=== PATIENT | male | born 1975 | race Caucasian/White ===

== ENCOUNTER 2017-01-06 22:24 | Emergency (ER) | payer SELFPAY ==
[~2017-01-06] VITALS: Ht 190.5 cm; Wt 90.5 kg
[2017-01-06 22:25] VITALS: BP 120/79; PULSE 95; RESP 16; TEMP 98.5; O2SAT 99
[2017-01-06] MEDS ORDERED: ACETAMINOPHEN 500 MG CPLT PO ONE (23:30)
[2017-01-06] MEDS ORDERED: ONDANSETRON HCL 4 MG/2 ML VIAL IV PUSH ONE (23:30)
--- NOTE | 2017-01-06 23:51 | RADRPT ---
EXAM DATE/TIME: 01/06/2017 23:30 [place] COMPARISON: No previous studies available for comparison. INDICATIONS : Right flank pain. ORAL CONTRAST: No oral contrast ingested. RADIATION DOSE: 7.22 CTDIvol (mGy) MEDICAL HISTORY : Renal calculi. SURGICAL HISTORY : Discectomy, lumbar. ENCOUNTER: Initial ACUITY: 1 day PAIN SCALE: 5/10 LOCATION: Right flank TECHNIQUE: Volumetric scanning of the abdomen and pelvis was performed. Using automated exposure control and ad justment of the mA and/or kV according to patient size, radiation dose was kept as low as reasonably achievable to obtain optimal diagnostic quality images. DICOM format image data is available electro nically for review and comparison. FINDINGS: LOWER LUNGS: The visualized lower lungs are clear. LIVER: Homogeneous density without lesion. There is no dilation of the biliary tree. No calcified gallston es. SPLEEN: Normal size without lesion. PANCREAS: Within normal limits. KIDNEYS: Normal in size and shape. There is no mass, stone, or hydronephrosis. ADRENAL GLANDS: Within normal limits. VASCULAR: There is no aortic aneurysm. BOWEL/MESENTERY: The stomach, small bowel, and colon demonstrate no acute abnormality. There is no free intraperitone al air or fluid. 6 mm fecalith seen in the appendix close to the tip but no wall thickening or inflam matory changes are demonstrated. ABDOMINAL WALL: Within normal limits. RETROPERITONEUM: There is no lymphadenopathy. BLADDER: No wall thickening or mass. REPRODUCTIVE: Within normal limits. INGUINAL: There is no lymphadenopathy or hernia. MUSCULOSKELETAL: Severe disc space narrowing with vacuum phenomena seen at L5/S1. There is moderate disc space narrowi ng at L3/L4 and L4/L5. CONCLUSION: No acute abnormality demonstrated. Marcell Lopez MD on January 06, 2017 at 23:47 Board Certified Radiologist. This report was verified electronically.
--- NOTE | 2017-01-06 23:56 | PD ---
HPI Chief Complaint: Flank/Kidney Pain Time Seen by Provider: 23:18 Travel History International Travel<30 days: No Contact w/Intl Traveler<30days: No Traveled to known affect area: No History of Present Illness HPI 41-year-old man, presents to the emergency department stating "kidney stones" ongoing for the past 3 hours. He states he's had 9 or 10 kidney stones in the past. He took some Motrin and some Flexeril which didn't help with the pain. States the last time he had a stone was about 11 months ago. No fevers or chills. No nausea no vomiting. History Past Medical History Medical History: Denies Significant Hx Tetanus Vaccination: > 5 Years Influenza Vaccination: No Social History Alcohol Use: No Tobacco Use: Yes (3 A DAY) Allergies-Medications (Allergen,Severity, Reaction): Coded Allergies: ketorolac (Verified Allergy, Severe, 01/06/17) tramadol (Verified Allergy, Severe, 01/06/17) Reported Meds & Prescriptions Reported Meds & Active Scripts Active No Active Prescriptions or Reported Medications Review of Systems Except as stated in HPI: all other systems reviewed are Neg Physical Exam Narrative GENERAL: Well-appearing 41 year-old woman, no acute distress. SKIN: Focused skin assessment warm/dry. NECK: Trachea midline. No JVD. CARDIOVASCULAR: Regular rate and rhythm. No murmur appreciated. RESPIRATORY: No accessory muscle use. Clear to auscultation. Breath sounds equal bilaterally. GASTROINTESTINAL: Abdomen soft, non-tender, nondistended. Hepatic and splenic margins not palpable. MUSCULOSKELETAL: No obvious deformities. No clubbing. No cyanosis. No edema. NEUROLOGICAL: Awake and alert. No obvious cranial nerve deficits. Motor grossly within normal limits. Normal speech. PSYCHIATRIC: Appropriate mood and affect; insight and judgment normal. Data Data Last Documented VS Vital Signs Date Time Temp Pulse Resp B/P (MAP) Pulse Ox O2 Delivery O2 Flow Rate FiO2 01/06/17 22:25 98.5 95 16 120/79 (93) 99 Room Air Orders Orders Ct Abd/Pel W/O Iv Contrast (01/06/17 ) Acetaminophen (Tylenol) (01/06/17 23:30) Ondansetron Inj (Zofran Inj) (01/06/17 23:30) MDM Medical Decision Making Medical Screen Exam Complete: Yes Emergency Medical Condition: Yes Differential Diagnosis Drug-seeking, renal lithiasis, shingles, back strain or sprain, other Narrative Course Medical decision making 41-year-old man presents emergent arm splinting of kidney stones. He states that multiple stones before and doesn't need a CT. He has multiple red flags concerning for opiate seeking including no photo ID, allergic to NSAIDs, high- risk complaint. CT scan performed to confirm if there is any evidence for indication for opiate medication. CT scan is normal. Suspect patient is drug- seeking, recommend opioid counseling and OTC medications as needed for pain. Diagnosis Primary Impression: Drug-seeking behavior Additional Impression: Flank pain Referrals: [facility] days Additional Instructions: Avoid opiates. Use [id number] medications as needed. Return to the emergency department for any new or worsening symptoms. Med/Other Pt SpecificInfo: No Change to Meds Scripts No Active Prescriptions or Reported Meds Disposition: 01 DISCHARGE HOME Condition: Stable Bob Alejandra MD Jan 06, 2017 23:56
== END 2017-01-07 00:15 | disposition home or self-care (01) ==
LOC: NEPE 22:24
DX: R10.9 Unspecified abdominal pain (principal); Z76.5 Malingerer [conscious simulation]; F17.200 Nicotine dependence, unspecified, uncomplicated; Z88.5 Allergy status to narcotic agent
CPT/HCPCS: 74176; 96374; 99285; J2405